=== PATIENT | male | born 1935 | race Caucasian/White ===

== ENCOUNTER 2016-08-08 10:13 | Observation (INO) | payer OTHER ==
[~2016-08-08] VITALS: Ht 175.3 cm; Wt 90.0 kg
[~2016-08-08 10:13] MED LIST: HYDRO25 PO; Z.0.NO CURRENT MEDS
[2016-08-08 10:16] VITALS: BP 176/82; PULSE 55; RESP 14; TEMP 98.1; O2SAT 97
--- NOTE | 2016-08-08 10:42 | PD ---
HPI . chest pain and headache for several days Chief Complaint: Chest Pain Time Seen by Provider: 10:41 Travel History International Travel<30 days: No Contact w/Intl Traveler<30days: No Traveled to known affect area: No History of Present Illness HPI 81-year-old male with past medical history of hypertension, gout, cataracts, macular degeneration and ? glaucoma, chronic stress headaches and BPH here with complaints of headache and chest pain for several days. Patient states that he was given Cosopt eyedrops on July 25, 2016 and on July 30, 2016 patient developed chest pain, headache, elevated blood pressure and reflux. He continued to experience symptoms for several days and went back to the eye doctor and was told to stop the eyedrops on August 01. Patient continued to experience some chest discomfort and decided to go to his primary care provider Dr. Farnsworth. At that point he was given EKG and told that he had minor changes. He was told to have a chest x-ray, which he has yet to complete. He does report being diagnosed with hypertension in the past, but only takes Lasix when necessary. Of note he is not really taking any of his medications and tells me that he uses them on an as-needed basis. He is legally blind in his right eye. He does have a history of macular degeneration and cataracts. There is some question whether or not he actually has glaucoma. At this present moment patient is reporting some mild headache, indigestion and burping. He also reports some mild chest pain. He states that his headache is dull in nature. He does have a history of stress headaches, but tells me he is not having the same symptoms this time. He states he can usually take aspirin and his headaches will go away, however they have not done so lately. He states the pain is a 5 out of 10 and all over his head, but initially started as 8/10. He cannot pinpoint an exact location. Nothing has made it better. In regards to his chest pain, initially started as a sharp pain. Now it is described as pressure and aching without radiation. He admits to some indigestion and burping. He denies any nausea, vomiting, shortness of breath or diaphoresis. He denies any visual changes other than what he usually experiences. He denies any neuro deficits. FOR[facility]LY [facility], [facility] Past Medical History Gout: Yes Hypertension: Yes Past Surgical History Abdominal Surgery: Yes (HERNIA REPAIR LEFT GROIN) Tonsillectomy: Yes Other Surgery: Yes (RIGHT HAND 2ND DIGIT, PARTIAL AMPUATION) Social History Alcohol Use: No Tobacco Use: No Substance Use: No Allergies-Medications (Allergen,Severity, Reaction): Coded Allergies: Indomethacin (Verified Allergy, Severe, NAUSEA, 08/08/16) Reported Meds & Prescriptions Reported Meds & Active Scripts Active Reported Benadryl Allergy (Diphenhydramine HCl) 25 Mg Tab 25 Mg PO Q6H PRN Aspirin 81 (Aspirin) 81 Mg Tabdr 162 Mg PO DAILY PRN Vitamin B-12 (Cyanocobalamin) 1,000 Mcg Tab 1,000 Mcg PO DAILY Eye Vitamins (Multiple Vitamins W/ Minerals) 1 Cap 1 Cap PO DAILY Naprosyn (Naproxen) 500 Mg Tab 1,000 Mg PO BID PRN Allopurinol 300 Mg Tab 300 Mg PO DAILY PRN Lasix (Furosemide) 20 Mg Tab 10 Mg PO DAILY PRN Review of Systems General / Constitutional: No: Fever Eyes: No: Visual changes HENT: Positive: Headaches Cardiovascular: Positive: Chest Pain or Discomfort Respiratory: No: Shortness of Breath Gastrointestinal: No: Abdominal Pain Genitourinary: No: Dysuria Musculoskeletal: No: Pain Skin: No Rash Neurologic: No: Weakness Psychiatric: No: Depression Endocrine: No: Polydipsia Hematologic/Lymphatic: No: Easy Bruising Physical Exam Narrative GENERAL: AAO x 3, no acute distress, Well-nourished, well-developed patient. SKIN: Warm and dry. No visible rashes or bruising. HEAD: Normocephalic and atraumatic. EYES: Right pupil with decreased pupillary reaction .No scleral icterus. No injection or drainage. EOM intact, ENT: No nasal drainage noted. Mucous membranes pink. Airway patent. left TM with cerumen impaction. NECK: Supple, trachea midline. No JVD. No lymphadenopathy CARDIOVASCULAR: Regular rate and rhythm without murmurs, gallops, or rubs. Chest pain is slightly reproducible in left mid axillary line. RESPIRATORY: Breath sounds equal bilaterally. No accessory muscle use. No rhonchi or rales. GASTROINTESTINAL: Abdomen soft, non-tender, nondistended. EXTREMITIES: No cyanosis or edema. BACK: Nontender without obvious deformity. No CVA tenderness. NEURO: [employer] strength WNL B/L, UE and LE normal strength. CN 2-12 intact. PSYCH: AAO x 3, normal affect. Data Data Last Documented VS Vital Signs Date Time Temp Pulse Resp B/P Pulse Ox O2 Delivery O2 Flow Rate FiO2 08/08/16 12:22 59 16 180/83 97 Room Air 08/08/16 10:16 98.1 Orders Electrocardiogram (08/08/16 10:22) Complete Blood Count With Diff (08/08/16 10:22) Basic Metabolic Panel (Bmp) (08/08/16 10:22) Ckmb (Isoenzyme) Profile (08/08/16 10:22) Troponin I (08/08/16 10:22) Chest, Single Ap (08/08/16 10:22) Iv Access Insert/Monitor (08/08/16 10:22) Ecg Monitoring (08/08/16 10:22) Oxygen Administration (08/08/16 10:22) Oximetry (08/08/16 10:22) Ct Brain W/O Iv Contrast(Rout) (08/08/16 11:08) Proparacaine 0.5% Opth Soln (Alcaine 0.5 (08/08/16 11:15) Diphenhydramine Inj (Benadryl Inj) (08/08/16 12:15) Metoclopramide Inj (Reglan Inj) (08/08/16 12:15) Admit Order (Ed Use Only) (08/08/16 13:18) Labs Laboratory Tests Test 08/08/16 11:20 White Blood Count 8.5 TH/MM3 Red Blood Count 4.32 MIL/MM3 Hemoglobin 13.2 GM/DL Hematocrit 39.5 % Mean Corpuscular Volume 91.3 FL Mean Corpuscular Hemoglobin 30.6 PG Mean Corpuscular Hemoglobin 33.5 % Concent Red Cell Distribution Width 12.7 % Platelet Count 280 TH/MM3 Mean Platelet Volume 7.2 FL Neutrophils (%) (Auto) 66.4 % Lymphocytes (%) (Auto) 17.8 % Monocytes (%) (Auto) 9.5 % Eosinophils (%) (Auto) 4.9 % Basophils (%) (Auto) 1.4 % Neutrophils # (Auto) 5.6 TH/MM3 Lymphocytes # (Auto) 1.5 TH/MM3 Monocytes # (Auto) 0.8 TH/MM3 Eosinophils # (Auto) 0.4 TH/MM3 Basophils # (Auto) 0.1 TH/MM3 CBC Comment DIFF FINAL Differential Comment Sodium Level 138 MEQ/L Potassium Level 4.7 MEQ/L Chloride Level 105 MEQ/L Carbon Dioxide Level 26.1 MEQ/L Anion Gap 7 MEQ/L Blood Urea Nitrogen 22 MG/DL Creatinine 1.21 MG/DL Estimat Glomerular Filtration 58 ML/MIN Rate Random Glucose 91 MG/DL Calcium Level 9.2 MG/DL Total Creatine Kinase 74 U/L Troponin I LESS THAN 0.02 NG/ML MDM Medical Decision Making Medical Screen Exam Complete: Yes Emergency Medical Condition: Yes Medical Record Reviewed: Yes Differential Diagnosis GERD, Migraine, ACS, Sinus headache, Narrative Course 81-year-old male with past medical history of hypertension, gout, cataracts, macular degeneration and ? glaucoma, chronic stress headaches and BPH here with complaints of headache and chest pain for several days. Patient states that he was given Cosopt eyedrops on July 25, 2016 and on July 30, 2016 patient developed chest pain, headache, elevated blood pressure and reflux. He continued to experience symptoms for several days and went back to the eye doctor and was told to stop the eyedrops on August 01. Patient continued to experience some chest discomfort and decided to go to his primary care provider Dr. Farnsworth. At that point he was given EKG and told that he had minor changes. He was told to have a chest x-ray, which he has yet to complete. He does report being diagnosed with hypertension in the past, but only takes Lasix when necessary. Of note he is not really taking any of his medications and tells me that he uses them on an as-needed basis. He is legally blind in his right eye. He does have a history of macular degeneration and cataracts. There is some question whether or not he actually has glaucoma. At this present moment patient is reporting some mild headache, indigestion and burping. He also reports some mild chest pain. He states that his headache is dull in nature. He does have a history of stress headaches, but tells me he is not having the same symptoms this time. He states he can usually take aspirin and his headaches will go away, however they have not done so lately. He states the pain is a 5 out of 10 and all over his head, but initially started as 8/10. He cannot pinpoint an exact location. Nothing has made it better. In regards to his chest pain, initially started as a sharp pain. Now it is described as pressure and aching without radiation. He admits to some indigestion and burping. He denies any nausea, vomiting, shortness of breath or diaphoresis. He denies any visual changes other than what he usually experiences. He denies any neuro deficits. Dr Doming[facility] spoke with Dr. Chu: patient IOP chronically elevated in high 30s. Patient seen and examined. Discussed with Dr. Chu. He is in no acute distress. Differentials including GERD, migraine, sinus headache, less likely ACS, less likely aortic dissection as symptoms have been present for > 2 weeks, less likely Temporal arteritis as headache is global EKG SInus regulo with sinus arrhythmia and 1st degree AV block. Labs WNL. CT Head: negative for any acute findings. Chest xray: minimal bibasilar atelectasis. Tonometry: Right 35, 26, 40 Left 16, 17 With chest pain, patient will be admitted to 23 hour observation chest pain center for ACS R/O. Advised follow up with primary care provider for further workup and treatment including ear lavage. Advised that he will need for up for his HTN and may need a medication that he can take daily and not just PRN. Advised f/u with ophthalmology. Diagnosis Primary Impression: Chest pain Qualified Code: R07.2 - Precordial pain Additional Impressions: Hypertension Qualified Code: I10 - Essential hypertension Glaucoma Qualified Code: H40.9 - Glaucoma of right eye, unspecified glaucoma Admitting Information Admitting Physician Requests: Admit Patient Instructions: Acute Headache (ED), General Instructions, Hypertension ( ED) Additional Instructions: Please follow up with instructional technology instructor upon discharge. Condition: Stable Aurelia Das Aug 08, 2016 10:41
--- NOTE | 2016-08-08 11:02 | RADRPT ---
EXAM DATE/TIME: 08/08/2016 10:21 [facility] COMPARISON: No previous studies available for comparison. INDICATIONS : Pain under left breast, lethargic, no shortness of breath, belching MEDICAL HISTORY : glaucoma SURGICAL HISTORY : None. ENCOUNTER: Initial ACUITY: 3 days PAIN SCORE: 5/10 LOCATION: Left chest FINDINGS: A single view of the chest demonstrates the lungs to be symmetrically aerated with minimal bibasilar atelectatic changes. No effusions. Lungs are otherwise clear. Heart size is normal. Mild dextroscolio sis of the dorsal spine with associated degenerative spurring. Osseous structures are otherwise intac t. CONCLUSION: 1. Minimal bibasilar atelectatic changes. 2. Otherwise, no acute process. Peter Ruano MD on August 08, 2016 at 10:59 Board Certified Radiologist. This report was verified electronically.
[2016-08-08] MEDS ORDERED: PROPARACAINE HCL 0.5% OPHT SOLN 15 ML BTL EACH EYE ONE (11:15)
[2016-08-08 11:31] LABS: AUTOMATED NEUTROPHIL # 5.6 TH/MM3 (1.8-7.7); BASOPHIL # 0.1 TH/MM3 (0-0.2); BASOPHIL % 1.4 % (0.0-2.0); EOSINOPHIL # 0.4 TH/MM3 (0-0.4); EOSINOPHIL % 4.9 % (0.0-4.0); HEMATOCRIT 39.5 % (39.0-51.0); HEMO FLAGS DIFF FINAL; LYMPH % 17.8 % (9.0-44.0); LYMPHOCYTE # 1.5 TH/MM3 (1.0-4.8); MEAN CELL VOLUME 91.3 FL (80.0-100.0); MEAN CORPUSCULAR HEMOGLOBIN 30.6 PG (27.0-34.0); MEAN CORPUSCULAR HGB CONC 33.5 % (32.0-36.0); MONO % 9.5 % (0.0-8.0); NEUT % 66.4 % (16.0-70.0); PLATELET COUNT 280 TH/MM3 (150-450); RED BLOOD COUNT 4.32 MIL/MM3 (4.50-5.90); RED CELL DISTRIBUTION WIDTH 12.7 % (11.6-17.2); WHITE BLOOD COUNT 8.5 TH/MM3 (4.0-11.0)
[2016-08-08] MEDS ORDERED: EYECAP PO (11:32)
[2016-08-08] MEDS ORDERED: FURO1TAB62 PO (11:32)
[2016-08-08] MEDS ORDERED: VITA10002 PO (11:32)
[2016-08-08] MEDS ORDERED: ASPI-110 PO (11:32)
[2016-08-08] MEDS ORDERED: ALLO300T2 PO (11:32)
[2016-08-08] MEDS ORDERED: BENA25TA3 PO (11:32)
[2016-08-08] MEDS ORDERED: NAPR500 PO (11:32)
--- NOTE | 2016-08-08 11:51 | RADRPT ---
EXAM DATE/TIME: 08/08/2016 11:35 [facility] COMPARISON: No previous studies available for comparison. INDICATIONS : Cephalgia. RADIATION DOSE: 56.35 CTDIvol (mGy) MEDICAL HISTORY : Hypertension. SURGICAL HISTORY : None. ENCOUNTER: Initial ACUITY: 1 day PAIN SCALE: 8/10 LOCATION: cranial TECHNIQUE: Multiple contiguous axial images were obtained of the head. Using automated exposure control and adj ustment of the mA and/or kV according to patient size, radiation dose was kept as low as reasonably a chievable to obtain optimal diagnostic quality images. FINDINGS: CEREBRUM: The ventricles are normal for age. No evidence of midline shift, mass lesion, hemorrhage or acute in farction. No extra-axial fluid collections are seen. POSTERIOR FOSSA: The cerebellum and brainstem are intact. The 4th ventricle is midline. The cerebellopontine angle i s unremarkable. EXTRACRANIAL: The visualized portion of the orbits is intact. SKULL: The calvaria is intact. No evidence of skull fracture. CONCLUSION: Unremarkable examination. Grzegorz Raya MD on August 08, 2016 at 11:47 Board Certified Radiologist. This report was verified electronically.
[2016-08-08 11:56] LABS: CREATINE KINASE 74 U/L (39-308)
[2016-08-08 11:57] LABS: ANION GAP 7 MEQ/L (5-15); BICARBONATE 26.1 MEQ/L (21.0-32.0); BLOOD UREA NITROGEN 22 MG/DL (7-18); CHLORIDE 105 MEQ/L (98-107); GLOMERULAR FILTRATION RATE 58 ML/MIN (>89); SODIUM (NA) 138 MEQ/L (136-145)
[2016-08-08 11:58] LABS: POTASSIUM 4.7 MEQ/L (3.5-5.1)
[2016-08-08] MEDS ORDERED: METOCLOPRAMIDE HCL 10 MG/2 ML VIAL IVP ONE (12:15)
[2016-08-08] MEDS ORDERED: diphenhydrAMINE HCL 50 MG/ML VIAL IVP ONE (12:15)
[2016-08-08 12:22] VITALS: BP 180/83; PULSE 59; RESP 16; O2SAT 97
--- NOTE | 2016-08-08 13:24 | PD ---
Data Data Last Documented VS Vital Signs Date Time Temp Pulse Resp B/P Pulse Ox O2 Delivery O2 Flow Rate FiO2 08/08/16 12:22 59 16 180/83 97 Room Air 08/08/16 10:16 98.1 Orders Electrocardiogram (08/08/16 10:22) Complete Blood Count With Diff (08/08/16 10:22) Basic Metabolic Panel (Bmp) (08/08/16 10:22) Ckmb (Isoenzyme) Profile (08/08/16 10:22) Troponin I (08/08/16 10:22) Chest, Single Ap (08/08/16 10:22) Iv Access Insert/Monitor (08/08/16 10:22) Ecg Monitoring (08/08/16 10:22) Oxygen Administration (08/08/16 10:22) Oximetry (08/08/16 10:22) Ct Brain W/O Iv Contrast(Rout) (08/08/16 11:08) Proparacaine 0.5% Opth Soln (Alcaine 0.5 (08/08/16 11:15) Diphenhydramine Inj (Benadryl Inj) (08/08/16 12:15) Metoclopramide Inj (Reglan Inj) (08/08/16 12:15) Admit Order (Ed Use Only) (08/08/16 13:18) Labs Laboratory Tests Test 08/08/16 11:20 White Blood Count 8.5 TH/MM3 Red Blood Count 4.32 MIL/MM3 Hemoglobin 13.2 GM/DL Hematocrit 39.5 % Mean Corpuscular Volume 91.3 FL Mean Corpuscular Hemoglobin 30.6 PG Mean Corpuscular Hemoglobin 33.5 % Concent Red Cell Distribution Width 12.7 % Platelet Count 280 TH/MM3 Mean Platelet Volume 7.2 FL Neutrophils (%) (Auto) 66.4 % Lymphocytes (%) (Auto) 17.8 % Monocytes (%) (Auto) 9.5 % Eosinophils (%) (Auto) 4.9 % Basophils (%) (Auto) 1.4 % Neutrophils # (Auto) 5.6 TH/MM3 Lymphocytes # (Auto) 1.5 TH/MM3 Monocytes # (Auto) 0.8 TH/MM3 Eosinophils # (Auto) 0.4 TH/MM3 Basophils # (Auto) 0.1 TH/MM3 CBC Comment DIFF FINAL Differential Comment Sodium Level 138 MEQ/L Potassium Level 4.7 MEQ/L Chloride Level 105 MEQ/L Carbon Dioxide Level 26.1 MEQ/L Anion Gap 7 MEQ/L Blood Urea Nitrogen 22 MG/DL Creatinine 1.21 MG/DL Estimat Glomerular Filtration 58 ML/MIN Rate Random Glucose 91 MG/DL Calcium Level 9.2 MG/DL Total Creatine Kinase 74 U/L Troponin I LESS THAN 0.02 NG/ML MDM Supervised Visit with WILD: Yes Narrative Course I, Dr. Chu, have reviewed the advance practice practioner's documentation and am in agreement, met with the patient face to face, made the diagnosis, and the medical decision making was done by me. *My assessment and Findings: 81-year-old male with history of HTN here with complaint of chest pain and headache. Patient attributes his headache due to right sided eye problems, has history of glaucoma, undergoing a Avastin injections which has increased his pressure further. He was placed on Cosopt by his senior clinical project manager and since his headache has gotten worse. He is legally blind in the right eye so is unable to tell me whether the vision has changed. Patient also notes approximate 2 weeks of a pressure, left-sided chest pain. He does have some burping associated with this, but no reflux type burning symptoms. He does not have any known history of cardiac disease and denies any history of provocative testing. No reproducible tenderness to palpation of the chest wall on exam. Regular rate and rhythm, clear to auscultation bilaterally. Neurologic examination unremarkable. Intraocular pressure 17 on the left, 40 on the right. No afferent pupillary defect. Differential includes glaucoma, acute versus chronic, ICH, hypertensive urgency, tension headache, cluster headache, ACS, atypical chest pain, GERD and less likely dissection. EKG and cardiac enzymes here were negative as well as chest x-rays CT of the brain. I called and spoke with his senior clinical project manager, Dr. Dominguez, he stated that his intraocular pressures have been elevated in the 30s to 40s in this right eye and this is not any acutely worsening and has been. Given his chest pain, patient needs serial enzymes and provocative testing prior to disposition will be admitted to chest pain center for this. He is to follow-up with senior clinical project manager upon discharge for elevated IOP's. Diagnosis Primary Impression: Chest pain Qualified Code: R07.2 - Precordial pain Additional Impressions: Hypertension Qualified Code: I10 - Essential hypertension Glaucoma Qualified Code: H40.9 - Glaucoma of right eye, unspecified glaucoma Admitting Information Admitting Physician Requests: Kristyn Almanzar MD Aug 08, 2016 13:24
[2016-08-08] MEDS ORDERED: PANTOPRAZOLE SOD 40 MG DELAYED RELEASE TAB PO SCH (14:15)
[2016-08-08] MEDS ORDERED: ALPRAZolam 0.25 MG TAB PO PRN (14:15)
[2016-08-08] MEDS ORDERED: SODIUM CHLORIDE 0.9% FLUSH 5 ML FLUSH IVF PRN (14:15)
[2016-08-08] MEDS ORDERED: ONDANSETRON HCL 4 MG/2 ML VIAL IV PRN (14:15)
[2016-08-08] MEDS ORDERED: ACETAMINOPHEN/HYDROcodone 325 MG/7.5 MG TAB PO PRN (14:15)
[2016-08-08] MEDS ORDERED: ACETAMINOPHEN 500 MG CPLT PO PRN (14:15)
[2016-08-08 14:34] VITALS: BP 168/75; PULSE 54; RESP 18; TEMP 97.8; O2SAT 96
--- NOTE | 2016-08-08 14:36 | HHI.HP ---
[facility] Primary Care Physician Sohail Farnsworth MD Chief Complaint Chest pain and headache History of Present Illness This is an 81-year-old male that presents to the ED with a complaint of several days of chest pain and headache. He estimates about 2 weeks of these symptoms. He states with his discomfort sometimes he will be burping quite a bit. The discomfort in his chest is been constant ever last 2 days. He has found that it improves when he lies on his back. Lying on his side worsens the discomfort. He also has a headache and thought it was attributed to his glaucoma. States he was recently diagnosed with glaucoma and was given eyedrops. He believes his eyedrops are causing his chest discomfort. He spoke with his second watch sergeant who instructed him to discontinue the drops. He saw his PCP last week and advised him to go to the ER in that day or on Monday which is today. States the discomfort is at this time but is mild. He rates as a 2-3 out of 10. He has had no shortness breath nausea or diaphoresis. He denies history of CVA. His primary care physician is Dr. Farnsworth. The ER physician spoke with the patient's second watch sergeant and advised the ED physician that they would follow the patient after they were discharged. Review of Systems General: Patient denies fevers, chills recent, and recent travel HEENT: Patient complains of a headache. Denies sore throat, difficulty swallowing. Cardiovascular: Has the chest discomfort as mentioned above. Denies sensation of heart beating rapidly or irregularly. No syncope. Respiratory: Denies shortness of breath or inspirational chest discomfort. Denies coughing wheezing or hemoptysis. GI: Patient denies nausea, vomiting, diarrhea, abdominal pain, bloody stools. Musculoskeletal: Patient denies joint pain or edema. Denies calf pain or edema. Neurovascular: Patient denies numbness, tingling, weakness in extremities. Denies headache. Endocrine: Denies polyuria and polydipsia. Hematologic: Denies easy bruising. Skin: Denies rash or itching. Past Family Social History Allergies: Coded Allergies: Indomethacin (Verified Allergy, Severe, NAUSEA, 08/08/16) Past Medical History Hypertension, glaucoma, gout, osteoarthritis, hiatal hernia. Denies hyperlipidemia, diabetes, and CAD. Past Surgical History Left inguinal hernia repair, tonsillectomy, right index finger Reported Medications Reported Meds & Active Scripts Active Reported Benadryl Allergy (Diphenhydramine HCl) 25 Mg Tab 25 Mg PO Q6H PRN Aspirin 81 (Aspirin) 81 Mg Tabdr 162 Mg PO DAILY PRN Vitamin B-12 (Cyanocobalamin) 1,000 Mcg Tab 1,000 Mcg PO DAILY Eye Vitamins (Multiple Vitamins W/ Minerals) 1 Cap 1 Cap PO DAILY Naprosyn (Naproxen) 500 Mg Tab 1,000 Mg PO BID PRN Allopurinol 300 Mg Tab 300 Mg PO DAILY PRN Lasix (Furosemide) 20 Mg Tab 10 Mg PO DAILY PRN Active Ordered Medications Current Medications Medications (Trade) Dose Ordered Sig/Jose Route Start Time Stop Time Status Last Admin (NS Flush) 2 ml UNSCH PRN IVF 08/08/16 14:15 (NS Flush) 2 ml BID IVF 08/08/16 21:00 (Tylenol) 500 mg Q4H PRN PO 08/08/16 14:15 (Estero 7.5-325 Mg) 1 tab Q4H PRN PO 08/08/16 14:15 (Zofran Inj) 4 mg Q6H PRN IV 08/08/16 14:15 (Protonix) 40 mg DAILY PO 08/08/16 14:15 (Xanax) 0.25 mg Q8H PRN PO 08/08/16 14:15 Family History Denies family history of CAD. Social History Denies tobacco abuse, alcohol, or illicit drug use.. Physical Exam Vital Signs Vital Signs Date Time Temp Pulse Resp B/P Pulse Ox O2 Delivery O2 Flow Rate FiO2 08/08/16 12:22 59 16 180/83 97 Room Air 08/08/16 11:22 94 Room Air 08/08/16 10:16 98.1 55 14 176/82 97 Room Air Physical Exam GENERAL: This is a well-nourished, well-developed patient, in no apparent distress. Patient speaks in clear complete sentences. Patient is pleasant. HEENT: Head is atraumatic and normocephalic. Neck is supple without lymphadenopathy and trachea is midline. No JVD or carotid bruits. CARDIOVASCULAR: Regular rate and rhythm without murmurs, gallops, or rubs. RESPIRATORY: Clear to auscultation. Breath sounds equal bilaterally. No wheezes , rales, or rhonchi. Chest wall is nontender. No use of accessory muscles. GASTROINTESTINAL: Abdomen is nontender, nondistended. Abdomen soft. No obvious pulsatile mass or bruit. No CVA tenderness. Strong femoral pulses bilaterally. Normal bowel sounds in all quadrants. MUSCULOSKELETAL: Patient is moving upper and lower extremities freely. No calf tenderness or edema, no Homans sign. Strong pulses in upper and lower extremities. NEUROLOGICAL: Patient is alert and oriented. Cranial nerves 2-12 are grossly intact. No focal deficits and speech is clear. SKIN: No rash and turgor is normal. Laboratory Laboratory Tests Test 08/08/16 11:20 White Blood Count 8.5 Red Blood Count 4.32 Hemoglobin 13.2 Hematocrit 39.5 Mean Corpuscular Volume 91.3 Mean Corpuscular Hemoglobin 30.6 Mean Corpuscular Hemoglobin 33.5 Concent Red Cell Distribution Width 12.7 Platelet Count 280 Mean Platelet Volume 7.2 Neutrophils (%) (Auto) 66.4 Lymphocytes (%) (Auto) 17.8 Monocytes (%) (Auto) 9.5 Eosinophils (%) (Auto) 4.9 Basophils (%) (Auto) 1.4 Neutrophils # (Auto) 5.6 Lymphocytes # (Auto) 1.5 Monocytes # (Auto) 0.8 Eosinophils # (Auto) 0.4 Basophils # (Auto) 0.1 CBC Comment DIFF FINAL Differential Comment Sodium Level 138 Potassium Level 4.7 Chloride Level 105 Carbon Dioxide Level 26.1 Anion Gap 7 Blood Urea Nitrogen 22 Creatinine 1.21 Estimat Glomerular Filtration 58 Rate Random Glucose 91 Calcium Level 9.2 Total Creatine Kinase 74 Troponin I LESS THAN 0.02 Result Diagram: 08/08/16 1120 08/08/16 1120 Imaging Last [address] 08/08/16 1108 Signed Impressions: Service Date/Time: Monday, August 08, 2016 11:35 - CONCLUSION: Unremarkable examination. Grzegorz Raya MD Chest X-Ray 08/08/16 1022 Signed Impressions: Service Date/Time: Monday, August 08, 2016 10:21 - CONCLUSION: 1. Minimal bibasilar atelectatic changes. 2. Otherwise, no acute process. Peter Ruano MD Course Initial EKG has sinus bradycardia with borderline first-degree AV block. No significant ST segment depression or elevation. Assessment and Plan Assessment and Plan * Atypical chest pain: Patient's first EKG and troponin are normal. He was seen by Dr. Joey Malik of cardiology in the chest pain center. Symptoms appear to be atypical and will undergo a Lexiscan. The patient was discharged home with instructions to follow-up with his PCP and his second watch sergeant if his stress test were to be nonischemic. * Hypertension: We'll continue monitor his blood pressures. Likely continue medication as instructed by his PCP. * History of glaucoma: Follow-up with your second watch sergeant. Nabil Bergeron Aug 08, 2016 14:36
[2016-08-08] MEDS ORDERED: REGADENOSON INJ 0.4 MG/5 ML SYR ONE (16:09)
[2016-08-08 17:05] VITALS: BP 145/62; PULSE 57; RESP 20; TEMP 96.6; O2SAT 96
--- NOTE | 2016-08-08 17:07 | RADRPT ---
EXAM DATE/TIME: 08/08/2016 15:33 [place] COMPARISON: CHEST SINGLE AP, August 08, 2016, 10:21. INDICATIONS : Susbternal chest pain. Angina. DOSE: 25.4 mCi Tc99m Myoview at stress. 8.5 mCi Tc99m Myoview at rest. 0.4 mg Lexiscan STRESS SYMPTOMS: Asymptomatic. EJECTION FRACTION: 70% MEDICAL HISTORY : Hypertension. Gout. SURGICAL HISTORY : Tonsillectomy. 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 ENCOUNTER: Initial ACUITY: 1 day PAIN SCALE: 3/10 LOCATION: Substernal chest TECHNIQUE: The patient underwent pharmacologic stress with infusion of prescribed dose. Continuous ECG tracing was monitored during stress. Gated SPECT imaging was performed after stress and conventional SPECT i maging was performed at rest. The examination was performed on a SPECT/CT scanner, both attenuation and non-corrected datasets were reviewed. FINDINGS: DISTRIBUTION: The maximum perfused segment at stress is in the septal wall. PERFUSION STUDY: The pattern of perfusion at stress is within normal limits. GATED STUDY: There is intact wall motion and thickening without hypokinetic or dyskinetic segments. CONCLUSION: 1. No fixed or reversible wall defects to suggest ischemia or infarction. 2. Normal wall motion and calculated ejection fraction. RISK CATEGORY: Low (<1% Annual Mortality Rate) Grzegorz Raya MD on August 08, 2016 at 17:04 Board Certified Radiologist. This report was verified electronically.
--- NOTE | 2016-08-08 17:15 | HHI.DCPOC ---
Discharge Care Plan Diagnosis: (1) Chest pain (2) Hypertension (3) Glaucoma (4) Head ache Goals to Promote Your Health * To prevent worsening of your condition and complications * To maintain your health at the optimal level Directions to Meet Your Goals Take your medications as prescribed Follow your dietary instruction Follow activity as directed Keep your appointments as scheduled Take your immunizations and boosters as scheduled If your symptoms worsen call your PCP, if no PCP go to Urgent Care Center or Emergency Room Smoking is Dangerous to Your Health. Avoid second hand smoke Call the 24-hour hour crisis hotline for domestic abuse at Nabil Bergeron Aug 08, 2016 17:14
[2016-08-08] MEDS ORDERED: SODIUM CHLORIDE 0.9% FLUSH 5 ML FLUSH IVF SCH (21:00)
--- NOTE | 2016-08-09 10:13 | TR ---
Date Performed: 08/08/2016 Time Performed: 16:08:39 DOCTOR: Birdie Penaloza DRUG LIST: CLINICAL HISTORY: CHEST PAIN REASON FOR TEST: CHEST PAIN REASON FOR ENDING: OBSERVATION: CONCLUSION: Lexiscan stress test was performed under standard four minute protocol. Radionuclid e was injected one minute prior to ending the test. No electrocardiographic abormalities were present to suggest ischemia. Nuclear imaging and interpretation are pending. COMMENTS:
--- NOTE | 2016-08-09 11:49 | EKG ---
Date Performed: 08/08/2016 Time Performed: 10:27:40 PTAGE: 81 years EKG: SINUS BRADYCARDIA WITH SINUS ARRHYTHMIA WITH FIRST DEGREE AV BLOCK ABNORMAL ECG Since PREVIOUS TRACING , now bradycardic PREVIOUS TRACIN01/20/2004 12.09 DOCTOR: Birdie Penaloza Interpretating Date/Time 08/09/2016 11:48:01
== END 2016-08-08 18:15 | disposition home or self-care (01) ==
LOC: NEPE 10:13 → NEDA 13:20 → NEPHCDU 16:24
PROVIDERS: ADMIT Internal Medicine Cardiovascular Disease; ATTEND Internal Medicine Cardiovascular Disease
DX: R07.89 Other chest pain (principal); I10 Essential (primary) hypertension; H40.9 Unspecified glaucoma; R51 Headache; I44.0 Atrioventricular block, first degree; R94.31 Abnormal electrocardiogram [ECG] [EKG]; H54.41 Blindness, right eye, normal vision left eye; K21.9 Gastro-esophageal reflux disease without esophagitis; M10.9 Gout, unspecified; N40.0 Benign prostatic hyperplasia without lower urinary tract symptoms
CPT/HCPCS: 70450; 71010; 78452; 80048; 82550; 84484; 85025; 93005; 93017; 96374; 96375; 99285; A9502; G0378; J1200; J2765; J2785

== ENCOUNTER 2016-08-28 23:55 | Emergency (ER) | payer OTHER ==
[~2016-08-28] VITALS: Ht 175.3 cm; Wt 90.0 kg
[~2016-08-28 23:55] MED LIST changes: +ALLO300T2 PO; +ASPI-110 PO; +BENA25TA3 PO; +EYECAP PO; +FURO1TAB62 PO; -HYDRO25 PO; +NAPR500 PO; +VITA10002 PO; -Z.0.NO CURRENT MEDS
[2016-08-29 00:07] VITALS: BP 136/77; PULSE 59; RESP 16; TEMP 97.6; O2SAT 94
[2016-08-29 00:30] VITALS: BP 136/77; PULSE 59; RESP 18; TEMP 97.6; O2SAT 94
[2016-08-29] MEDS ORDERED: DORZ2SOL EACH EYE (00:46)
[2016-08-29] MEDS ORDERED: AMLO10TA2 PO (00:46)
[2016-08-29] MEDS ORDERED: IBUP-232 PO (01:01)
[2016-08-29] MEDS ORDERED: AMOX875T PO (01:01)
--- NOTE | 2016-08-29 01:02 | PD ---
HPI Chief Complaint: Oral / Dental Pain or Problem Time Seen by Provider: 00:56 Travel History International Travel<30 days: No Contact w/Intl Traveler<30days: No Traveled to known affect area: No History of Present Illness HPI The patient is an 81-year-old male that complains of pain from a dental infection the left lower jaw. He does have some nausea and some dizziness. He has a history of vertigo however. He denies any vomiting or diarrhea. His only allergy is to indomethacin. PFSH Past Medical History Arthritis: Yes Cardiovascular Problems: Yes Diminished Hearing: No Gout: Yes Hypertension: Yes Immunizations Current: Yes Tetanus Vaccination: Unknown Influenza Vaccination: No Past Surgical History Abdominal Surgery: Yes (HERNIA REPAIR LEFT GROIN) Tonsillectomy: Yes Other Surgery: Yes (RIGHT HAND 2ND DIGIT, PARTIAL AMPUATION) Social History Alcohol Use: No Tobacco Use: No Substance Use: No Allergies-Medications (Allergen,Severity, Reaction): Coded Allergies: Indomethacin (Verified Allergy, Severe, NAUSEA, 08/29/16) Reported Meds & Prescriptions Reported Meds & Active Scripts Active Reported Amlodipine (Amlodipine Besylate) 10 Mg Tab 2.5 Mg PO DAILY Dorzolamide Opth Drops (Dorzolamide HCl) 2% Soln 1 Drop EACH EYE BID Benadryl Allergy (Diphenhydramine HCl) 25 Mg Tab 25 Mg PO Q6H PRN Aspirin 81 (Aspirin) 81 Mg Tabdr 162 Mg PO DAILY PRN Vitamin B-12 (Cyanocobalamin) 1,000 Mcg Tab 1,000 Mcg PO DAILY Eye Vitamins (Multiple Vitamins W/ Minerals) 1 Cap 1 Cap PO DAILY Naprosyn (Naproxen) 500 Mg Tab 1,000 Mg PO BID PRN Allopurinol 300 Mg Tab 300 Mg PO DAILY PRN Review of Systems Except as stated in HPI: all other systems reviewed are Neg Physical Exam Narrative GENERAL: Well-nourished, well-developed patient in moderate apparent distress with his left dental pain. Is vital signs are normal. SKIN: Warm and dry. HEAD: Normocephalic. EYES: No scleral icterus. No injection or drainage. NECK: Supple, trachea midline. No JVD or lymphadenopathy. CARDIOVASCULAR: Regular rate and rhythm without murmurs, gallops, or rubs. RESPIRATORY: Breath sounds equal bilaterally. No accessory muscle use. GASTROINTESTINAL: Abdomen soft, non-tender, nondistended. MUSCULOSKELETAL: No cyanosis, or edema. BACK: Nontender without obvious deformity. No CVA tenderness. DENTAL: No loose or chipped teeth. No malocclusion. There is some swelling around teeth #17 and 18 and buccal tenderness and swelling above these teeth. No drainable abscess is identified. Data Data Last Documented VS Vital Signs Date Time Temp Pulse Resp B/P Pulse Ox O2 Delivery O2 Flow Rate FiO2 08/29/16 00:35 59 18 08/29/16 00:30 97.6 136/77 94 MDM Medical Decision Making Medical Screen Exam Complete: Yes Emergency Medical Condition: Yes Medical Record Reviewed: Yes Differential Diagnosis Dental infection, drainable abscess, Oliver's anginahighly unlikely, buccal abscess Narrative Course I cannot feel a buccal abscess at this time. He only has induration on the left buccal area. He does not have any drainable abscesses at this time. Plan: The patient be given amoxicillin 875 twice daily for 10 days as well as Zofran for his nausea. His first dose will be Rocephin 1 g IV here along with Zofran 4 mg IV. He needs to follow-up with a dentist. Diagnosis Primary Impression: Dental infection Additional Instructions: As we discussed, it is necessary to follow-up with a dentist. Call later on today to set up that appointment. The antibiotic is one tablet twice daily for 10 days and the Zofran is one tablet every 6 hours as necessary for nausea. Med/Other Pt SpecificInfo: Prescription(s) given Scripts Amoxicillin 875 Mg Uil778 Mg PO BID 10 Days Ref 0 Prov:Hugo Gutierrez MD 08/29/16 Ibuprofen 600 Mg Pxi470 Mg PO TID #45 TAB Ref 0 Prov:Hugo Gutierrez MD 08/29/16 Disposition: 01 DISCHARGE HOME Condition: Stable Hugo Gutierrez MD Aug 29, 2016 01:02
[2016-08-29] MEDS ORDERED: ONDANSETRON HCL 4 MG/2 ML VIAL IV ONE (01:15)
[2016-08-29] MEDS ORDERED: cefTRIAXone INJ 1,000 MG in SODIUM CHLORIDE 0.9% INJ 100 ML IV ONE (01:15)
[2016-08-29 01:36] VITALS: BP 132/62; PULSE 54; RESP 18; O2SAT 95
== END 2016-08-29 01:56 | disposition home or self-care (01) ==
LOC: PHED 23:55
DX: K04.7 Periapical abscess without sinus (principal); R42 Dizziness and giddiness; R11.0 Nausea; I10 Essential (primary) hypertension
CPT/HCPCS: 96365; 96375; 99283; J0696; J2405